=== PATIENT | male | born 1950 | race Caucasian/White ===

== ENCOUNTER 2025-02-02 11:40 | Outpatient (OUT) | payer MEDICARE, SELFPAY ==
--- OUTSIDE RECORDS SUMMARY | 2025-02-02 11:55 | XMS_ITS | Clinical Summary ---
Author Organization [facility] Address [address] [place] [address] Care Team Providers Care Commissioner Of Relocation Services Name Role Phone Victor M Vallecillo MD Unavailable Unavailable Aditya Aguilar DO Primary Care Provider [phone] Johnathan Pimentel DO Unavailable [phone] Allergies Active AllergyReactionsCriticalityNoted DateCommentsErythromycin Base01/15/2023 Other Reaction(s): Unknown HdrkjrtcvxyvauxAvbodceycbmQyzr41/20/2019 Medications MedicationSigDispense QuantityRefillsLast FilledStart DateEnd DateStatus atorvastatin (Lipitor) 20 MG tablet Take 20 mg by mouth in the morning.12/23/2022ctive betamethasone valerate (Valisone) 0.1 % cream APPLY TO THE AFFECTED AREA(S) TWICE DAILY11/28/2022ctive diphenhydrAMINE-acetaminophen (Tylenol PM) 25-500 MG per tablet Take 1 tablet by mouth as needed at bedtime.Active Ferrous Sulfate (IRON PO) Take 1 tablet by mouth in the morning.Active HYDROcodone-acetaminophen (Homedale) 5-325 MG tablet TAKE 1 TABLET BY MOUTH FOUR TIMES DAILY NEEDED for severe pain11/28/2022 Active omega-3 (fish oil) 1000 MG capsule Take 1 g by mouth in the morning and 1 g in the evening.Active omeprazole (PriLOSEC) [address] capsule TAKE 1 CAPSULE BY MOUTH BEFORE morning meal10/17/2022ctive temazepam (Restoril) 15 MG capsule TAKE 1 CAPSULE BY MOUTH EVERY DAY AT BEDTIME SIXTCD0511/28/2022ctive tiZANidine (Zanaflex) 4 MG tablet every 8 (eight) hours.Active cephalexin (Keflex) 500 MG capsule Indications:Basal cell carcinoma (BCC) of left cheekTake 1 capsule, by mouth, bid, 10 days 20 capsule 02/21/2023ctive methylPREDNISolone (Medrol Dospak) 4 MG tablets TAKE BY MOUTH DIRECTED ON RMOBQGQ4511/28/2022ctive ketoconazole (NIZOral) 2 % cream Indications:Other seborrheic dermatitisApply thin layer to affected area, once daily, 30 day supply 60 g ctive Active Problems ProblemNoted DateDiagnosed DateCarpal tunnel jfaqfecd19/12/2024 Resolved Problems ProblemNoted DateDiagnosed DateResolved DateCompression fracture of body of thoracic cyfyneof74 Immunizations ImmunizationAdministration DatesNext DueRuthen ORAL-SnK-415/15/2021 Family History Medical HistoryRelationNameCommentsNo Known ProblemsBrother2 brothers, healthy Heart diseaseFatherHeart diseaseMotherNo Known ProblemsSisterRelationNameStatus CommentsBrother2 brothersFatherDeceasedMotherDeceasedSister1 sister Social History Tobacco UseTypesPacks/DayYears UsedDateSmoking Tobacco: Every DayCigarettes Tobacco Cessation:Ready to Q uit: Not Asked; Counseling Given: Yes Comments:Patient smokes 21-30 cigarettes/day after 31-60 minutes of waking up. Thinking about quitting. Alcohol UseStandard Drinks/WeekCommentsYes0 (1 standard drink = 0.6 oz pure alcohol)caffeine: noneSex and Gender InformationValueDate RecordedSex Assigned at BirthNot on fileLegal PwvVvnu7406/27/2022 6:48 PM EDTGender IdentityNot on file Sexual OrientationNot on file Last Filed Vital Signs Vital SignReadingTime TakenCommentsBlood Bazlkgjd364/9011 4:13 PM EST Pulse--Temperature--Respiratory Ygqh360606/04/2024 10:05 AM ESTOxygen Saturation-- Inhaled Oxygen Concentration--Lhvrfb10.1 kg (170 lb)06/04/2024 10:05 AM EST Ovfwam607.7 cm (5' 8 )06/04/2024 10:05 AM ESTBody Mass Index25.85006/04/2024 10:05 AM EST Plan of Treatment DateTypeDepartmentCare Team (Latest Contact Info)Jcjajuecumw67/11/2025 10:05 AM ESTOffice Visit [facility] [address] [place] [address] Kassandra Diaz APRN-DRAGGER OUT [address] [place] [address] Insurance Care Teams Team MemberRelationshipSpecialtyStart DateEnd Date Aditya Aguilar DO PCP - Ealftyo42/9/23 Victor M Vallecillo MD Referring LqfbgxcuxLrijjblzfjg09/9/23 Johnathan Pimentel DO [address] [place] [address] Referring FgrtrlcdeEjgttyptoqjvvn13/9/23
--- OUTSIDE RECORDS SUMMARY | 2025-02-02 11:55 | XMS_ITS | Clinical Summary ---
Author Organization [facility] Address [id number] [address] [place] [address] Care Team Providers Care Bookseamer Blindstitch Name Role Phone Kunal Aguilar DO Primary Care Provider [phone] Allergies Active AllergyReactionsCriticalityNoted DateCommentsTerramycinAnaphylaxisHigh 10/02/2018 Medications MedicationSigDispense QuantityRefillsLast FilledStart DateEnd DateStatus omega-3 fatty acids-fish oil (FISH OIL) 300-1,000 mg capsule Take 1 g by mouth 2 (two) times a day. Active cfhhqovn-lmso-CJ-calcium &mins (THERAGRAN-M) 9 mg iron-400 mcg tablet Take 1 tablet by mouth daily.Active atorvastatin (LIPITOR) 20 mg tablet Take 20 mg by mouth daily.Active diphenhydrAMINE-acetaminophen (TYLENOL PM) 25-500 mg tablet Take 1 tablet by mouth nightly as needed for sleep.Active imiquimod (ALDARA) 5 % cream Apply contents of packet once in evening before bedtime five times per week for 6 weeks. Leave on overnight, then wash off in AM. Wash hands prior to and following application. 30 each 5Active Active Problems ProblemNoted DateDiagnosed DateBasal cell carcinoma (BCC) of skin of nose 06/24/2024 Cancer Staging: Clinical:Stage I(cT1, cN0, cM0) - Signed by Zay Dow MD on 06/24/2024 Compression fracture of body of thoracic xfrepmec37/20/2019 Encounters DateTypeDepartmentCare GdfmFkuvdqvlyyq39/02/0083Mjwedp74/23/2025Travelfrom Last 3 Months Immunizations No known immunizations Social History Tobacco UseTypesPacks/DayYears UsedDateSmoking Tobacco: Every DayCigarettes Smokeless Tobacco: NeverAlcohol UseStandard Drinks/GzpiSvdwizrcQkh45 (1 standard drink = 0.6 oz pure alcohol)drinks dailyChildcareAnswerDate RecordedChildcare Tutxwtg8609/24/2018EmploymentAnswerDate CpcqvcisKucskarzgpMrcmiqg73/12/2019Purpose - LifeAnswerDate RecordedPurpose and direction in uebcFrbnnsu74/11/2021ex and Gender InformationValueDate RecordedSex Assigned at BirthNot on fileLegal Sex Male11/18/2014 11:55 AM EDTGender IdentityNot on fileSexual OrientationNot on file Last Filed Vital Signs Vital SignReadingTime TakenCommentsBlood Zowtxixm704/5706 12:44 PM EDT Abafa239810/05/2018 12:44 PM VLTMvoqfhlzlqw62.6 ??C (97.9 ??F)10/05/2018 12:44 PM EDTRespiratory Pnws245110/05/2018 12:44 PM EDTOxygen Ftnincrzig86%10/05/2018 12:44 PM EDTInhaled Oxygen Concentration--Nvhnsp40.6 kg (171 lb 1.2 oz)10/05/2018 2:15 AM TVXOveyeo625.2 cm (5' 7.01 )10/03/2018 9:28 AM EDTBody Mass Index26.79 10/03/2018 9:28 AM EDT Plan of Treatment Health MaintenanceDue DateLast DoneCommentsDepression Dwkalwrbj70/18/1962Tobacco Joqdjtmjs28/18/1962DTaP,Tdap and Td Vaccines (1 - Tdap)1968Zoster (Shingles) Vaccine (1 of 2)1968Fall Risk Dszjslign28/18/2015Influenza Tgkczcj0412/14/2024 Goals GoalPatient Goal TypeAssociated ProblemsRecent ProgressPatient-Stated?Author <enter goal here> Federico Alvarez RN Note: Evaluation of progress towards goal: DC home Medical Devices Not on file Insurance Advance Directives * Full Code (Latest Code Status on File) Date ActivatedDate InactivatedComments10/03/2018 1:02 PM10/05/2018 5:57 PM Care Teams Team MemberRelationshipSpecialtyStart DateEnd Date Kunal Aguilar DO [address] [place] [address] PCP - GeneralFamily Medicine10/02/18
--- NOTE | 2025-02-02 12:02 | XR_ITS ---
[facility] [place] [id number] Patient Name: JOHN RO MRN: [id number] date: 1950 Sex: M Assigned Patient Location: [facility] Current Patient Location: [facility] Accession/Order Number: [id number] Exam Date: 02/02/2025 12:10 Report Date: 02/02/2025 14:30 At the request of: JACOBY CASE DPClaudia Procedure: XR foot LT min 3V LEFT FOOT - 3 views CLINICAL DATA: Chronic left foot pain, greatest at the first metatarsal phalangeal joint. No injury. COMPARISON: None Standing AP, lateral and oblique views were obtained. There is osteopenia. There is no acute fracture or dislocation. There is narrowing of the first metatarsal phalangeal joint with subchondral sclerosis, cystic change, spurring and a dorsal corticated bony ossicle. Tiny calcaneal spurs are visualized. There are no significant soft tissue abnormalities. XR/XR foot LT min 3V IMPRESSION: DEGENERATIVE CHANGES AT THE FIRST METATARSAL PHALANGEAL JOINT. TINY CALCANEAL SPURS. NO ACUTE BONY FINDINGS. Impression dictated by: Alicia Hong M.D. 02/02/2025 2:30 PM Dictation Location: [place] [address] Electronically authenticated by: [id number] Y Date: 02/02/2025 14:30
== END 2025-02-02 11:41 | disposition home or self-care (01) ==
LOC: RAD 11:52
PROVIDERS: PCP Family Medicine; Visit Provider Podiatrist Foot & Ankle Surgery
DX: M79.672 Pain in left foot (principal); M77.32 Calcaneal spur, left foot
CPT/HCPCS: 73630